=== PATIENT | male | born 1950 | race Caucasian/White ===

== ENCOUNTER 2019-04-16 06:11 | Day surgery (SDC) | payer MEDICARE, BC ==
[2019-04-16] MEDS ORDERED: Propofol 200 MG/20 ML SDV IV ONE (06:12)
[2019-04-16] MEDS ORDERED: Lidocaine 2% 100 MG/5 ML Syringe IVPUSH ONE (06:12)
[2019-04-16] MEDS: Lactated Ringers 1,000 ML IV SCH (07:07)
--- NOTE | 2019-04-16 07:52 | PCM.OPNOTE ---
- General Post-Op/Procedure Note Date of Surgery/Procedure: 04/16/19 Operative Procedure(s): egd with bx Findings: gastric ulcer (antral) Pre Op Diagnosis: melena with anemia Post-Op Diagnosis: gastric ulcer (antral) Anesthesia Technique: MAC Primary Surgeon: Jordan Carrero Anesthesia Provider: Jose Guadalupe Frey (KATALINA Klein) Pathology: ulcer edge and gastric mucosa Complications: None Condition: Good Free Text/Narrative:: see dictation
--- NOTE | 2019-04-16 12:22 | OR ---
DATE OF OPERATION: 04/16/2019 SURGEON: Jordan Carrero MD PROCEDURE PERFORMED: Upper endoscopy. PREOPERATIVE DIAGNOSES: Melena with anemia and epigastric pain. POSTOPERATIVE DIAGNOSIS: Gastric ulcer. INDICATIONS FOR PROCEDURE: This is a 68-year-old white male, referred with a history of some epigastric abdominal pain and melena. He also has anemia. He was offered and accepted an upper endoscopy. DESCRIPTION OF OPERATION: After an excellent IV sedation was administered, the bite block was inserted. Flexible endoscope was passed without difficulty down the patient's esophagus into the stomach. Stomach was insufflated. Scope passed through pylorus, second portion of duodenum, and slowly withdrawn. The following findings were noted. Duodenum is unremarkable. The antrum revealed an ulceration that appeared to be healing. Photo and biopsies of the edge of the ulcer were taken as well as some random gastric biopsies were submitted. Remainder of the gastric exam unremarkable. The esophagus was unremarkable. The patient tolerated the procedure well after the scope was removed and the stomach was deflated. He will be sent home on Carafate as well as started on a proton pump inhibitor. We will keep him on his Plavix as things appear to be healing, but I have asked him to stop his aspirin. Results by letter. Will require a followup endoscopy in 6 weeks to ensure healing. /[id number] /MODL
[2019-04-17] MEDS ORDERED: Lactated Ringers 1,000 ML IV SCH (06:30)
== END 2019-04-16 08:43 | disposition home or self-care (01) ==
LOC: FB.SDS 06:11
PROVIDERS: ATTEND Surgery
DX: K25.4 Chronic or unspecified gastric ulcer with hemorrhage (principal); K29.51 Unspecified chronic gastritis with bleeding; D50.0 Iron deficiency anemia secondary to blood loss (chronic); B96.81 Helicobacter pylori [H. pylori] as the cause of diseases classified elsewhere; I25.810 Atherosclerosis of coronary artery bypass graft(s) without angina pectoris; I10 Essential (primary) hypertension; Z87.891 Personal history of nicotine dependence; Z95.1 Presence of aortocoronary bypass graft; Z95.5 Presence of coronary angioplasty implant and graft; Z79.82 Long term (current) use of aspirin; Z79.02 Long term (current) use of antithrombotics/antiplatelets; Z79.899 Other long term (current) drug therapy
CPT/HCPCS: 00731-QZ; 88305; 88342; J2001; J2704; J7120

== ENCOUNTER 2019-06-07 06:44 | Day surgery (SDC) | payer MEDICARE, BC ==
[2019-06-07] MEDS ORDERED: Propofol 200 MG/20 ML SDV IV ONE (06:45)
[2019-06-07] MEDS ORDERED: Lidocaine 2% 100 MG/5 ML Syringe IVPUSH ONE (06:45)
[2019-06-07] MEDS ORDERED: Lactated Ringers 1,000 ML IV SCH (06:45)
--- NOTE | 2019-06-07 08:00 | PCM.OPNOTE ---
- General Post-Op/Procedure Note Date of Surgery/Procedure: 06/07/19 Operative Procedure(s): egd with bx Findings: gastritis Pre Op Diagnosis: hx of gastric ulcer Post-Op Diagnosis: antritis Anesthesia Technique: JACOBY Primary Surgeon: Jordan Carrero Anesthesia Provider: Jose Guadalupe Frey Pathology: antrum Complications: None Condition: Good Free Text/Narrative:: see dictation
--- NOTE | 2019-06-07 08:01 | PREOP ---
ADMISSION DATE: 06/07/2019 CHIEF COMPLAINT: Hx of Melena and gastric ulcer HISTORY OF PRESENT ILLNESS: A 68-year-old white male who had a history of black stools. Gastric ulcer dx in March. Has been treated and presents now for follow up scope to evaluate healing. MEDICATIONS: 1. Nexium 40 mg daily. 2. Nitrostat 0.4 mg sublingual on a p.r.n. basis. 3. Proscar 5 mg daily. 4. Flomax 0.4 mg one time per day. 5. Zocor 80 mg one time a day. 6. Plavix 75 mg one time per day. 7. Baby aspirin 81 mg daily. 8. Lisinopril 5 mg daily. 9. Toprol 25 mg SR per day. ALLERGIES: He has no known drug allergies. PAST MEDICAL HISTORY: Significant for hypercholesterolemia, hypertension, backache, coronary artery disease with bypass, umbilical and inguinal hernia, and gout. PAST SURGICAL HISTORY: Significant for hernia repair, drain replacement, stent, ankle surgery, and vasectomy. FAMILY HISTORY: Significant for hypertension, coronary artery disease, diabetes, mental illness. He is . He has 4 kids. He works as a chapin. He is a former smoker. REVIEW OF SYSTEMS: Negative for constitutional, HEENT, eyes, respiratory, cardiovascular, gastrointestinal, genitourinary, musculoskeletal. PHYSICAL EXAMINATION: GENERAL: This is a well-developed, well-nourished male, appearing in no acute distress. HEENT: Grossly within normal limits. LUNGS: Clear to auscultation. HEART: Had a regular rate and rhythm. ABDOMEN: Soft, nontender. ASSESSMENT: History of melena and gastric ulcer PLAN: Esophagogastroduodenoscopy. Procedure and risks explained to the patient to include bleeding, perforation, and infection. The patient expresses understanding and he asked us to proceed. /[id number] DECLAN/SHANE CUEVAS
--- NOTE | 2019-06-07 08:25 | OR ---
DATE OF OPERATION: 06/07/2019 SURGEON: Jordan Carrero MD PREOPERATIVE DIAGNOSIS: History of melena, epigastric pain. POSTOPERATIVE DIAGNOSIS: Gastritis. PROCEDURE PERFORMED: Esophagogastroduodenoscopy with cold forceps biopsy. INDICATIONS FOR PROCEDURE: This is a 68-year-old white male, who has a history of melena and epigastric pain. This has resolved on a proton pump inhibitor, but he presents for an EGD to evaluate to ensure that he has no ulcer disease. DESCRIPTION OF OPERATION: After an excellent sedation was administered, bite block was inserted. Flexible endoscope was passed without difficulty down the patient's esophagus into the stomach. Stomach was insufflated. Scope was passed through the pylorus, second portion of the duodenum and slowly withdrawn. Following findings were noted: Duodenum was unremarkable. Stomach demonstrates gastritis, especially in the area of the antrum. Multiple biopsies were taken as well as photo. GE junction measured 40 cm. Esophagus was unremarkable. Stomach was deflated. Scope was removed. The patient was taken to Recovery. Results by letter. /[id number] /MODL
== END 2019-06-07 08:33 | disposition home or self-care (01) ==
LOC: FB.SDS 06:44
PROVIDERS: ATTEND Surgery
DX: K29.50 Unspecified chronic gastritis without bleeding (principal); K31.89 Other diseases of stomach and duodenum; E78.00 Pure hypercholesterolemia, unspecified; I10 Essential (primary) hypertension; I25.10 Atherosclerotic heart disease of native coronary artery without angina pectoris; Z95.1 Presence of aortocoronary bypass graft; Z79.899 Other long term (current) drug therapy; Z79.02 Long term (current) use of antithrombotics/antiplatelets; Z79.82 Long term (current) use of aspirin
CPT/HCPCS: 00731; 43239; 88305; J2001; J2704; J7120; 88342